=== PATIENT | female | born 2000 | race Caucasian/White ===

== ENCOUNTER 2023-10-15 09:36 | Emergency (ER) | payer OTHER ==
[2023-10-15 09:53] VITALS: BP 116/50; O2SAT 99
--- NOTE | 2023-10-15 09:54 | ED Physician Documentation ---
History of Present Illness - Stated complaint Stated Complaint: FALL,CRAMPING - Chief complaint Chief Complaint: General - History obtained from History obtained from: Patient - Additonal information Additional information: 23-year-old G2, P1 at 16 weeks fell on her back a couple of days ago while working and has pelvic cramping without bleeding or fluid loss. No other injuries. PD PAST MEDICAL HISTORY - Past Medical History Cardiovascular: None Respiratory: None Neuro: None Endocrine/Autoimmune: None GI: None TABULATING SUPERVISOR: None : None HEENT: None Psych: None Musculoskeletal: None Derm: None - Past Surgical History Past Surgical History: Yes HEENT: Tonsil/Adenoidectomy - Present Medications Home Medications: Ambulatory Orders Medication Instructions Recorded Confirmed Nitrofurantoin [Macrobid] 100 mg PO BID #10 cap 09/02/23 - Allergies Allergies/Adverse Reactions: Allergies Allergy/AdvReac Type Severity Reaction Status Date / Time No Known Drug Allergies Allergy Verified 10/15/23 09:41 - Social History Does the pt smoke?: No Smoking Status: Never smoker Does the pt drink ETOH?: No Does the pt have substance abuse?: No - Immunizations Immunizations are current?: Yes - POLST Patient has POLST: No PD ED PE NORMAL - Vitals Vital signs reviewed: Yes - General General: Alert and oriented X 3, No acute distress - Abdomen Abdomen: Normal bowel sounds, Soft, Non tender, Other (Bedside ultrasound demonstrates single live intrauterine with a heart rate of 154 and positive motion.) - Neuro Neuro: Alert and oriented X 3, Normal speech Eye Opening: Spontaneous Motor: Obeys Commands Verbal: Oriented GCS Score: 15 Results - Vitals Vitals: Vital Signs - 24 hr 10/15/23 09:42 Temperature 36.7 C Heart Rate 75 Respiratory 16 Rate Blood Pressure 116/50 L O2 Saturation 99 Oxygen O2 Source Room air PD Medical Decision Making - ED course ED course: She presents with pelvic cramping in second trimester after a fall with reassuring bedside ultrasound. Departure - Departure Disposition: 01 Home, Self Care Clinical Impression: Qualifiers: Weeks of gestation: 16 weeks Qualified Code(s): Z3A.16 - 16 weeks gestation of Back contusion Qualifiers: Encounter type: initial encounter Laterality: unspecified laterality Qualified Code(s): S20.229A - Contusion of unspecified back wall of thorax, initial encounter Condition: Good Record reviewed to determine appropriate education?: Yes Instructions: ED Preg Established Normal Sxs Follow-Up: [facility] [Provider Group] Comments: Call your doctor to arrange a follow-up appointment, make the next available appointment. In the interim, return anytime if worse or if new symptoms develop.
== END 2023-10-15 10:15 | disposition home or self-care (01) ==
LOC: ED 09:36
DX: O9A.212 Injury, poisoning and certain other consequences of external causes complicating pregnancy, second trimester (principal); S20.229A Contusion of unspecified back wall of thorax, initial encounter; Z3A.16 16 weeks gestation of pregnancy; W19.XXXA Unspecified fall, initial encounter; Y99.0 Civilian activity done for income or pay
CPT/HCPCS: 99281; 99282

== ENCOUNTER 2023-10-22 08:00 | Outpatient (CLI) | payer OTHER ==
[2023-10-22 17:10] LABS: BILIRUBIN,URINE NEGATIVE (NEGATIVE); GLUCOSE, URINE (UA) NEGATIVE (NEGATIVE); KETONES,URINE (UA) TRACE mg/dL (NEGATIVE); LEUKOCYTE ESTERASE, URINE MODERATE (NEGATIVE); NITRITE,URINE POSITIVE (NEGATIVE); OCCULT BLOOD,URINE NEGATIVE (NEGATIVE); PROTEIN,URINE NEGATIVE (NEGATIVE); UROBILINOGEN,URINE 1 (NORMAL) E.U./dL (NORMAL)
[2023-10-22 17:11] LABS: CLARITY,URINE CLOUDY (CLEAR)
[2023-10-22 17:20] LABS: AMORPHOUS SEDIMENT,UR Marked /LPF; BACTERIA,URINE Many /HPF (None Seen); RBC,URINE 0-5 /HPF (0-5); SQUAMOUS EPITHELIAL CELL,UR FEW Squamous (<= Few)
[2023-10-22 20:35] LABS: CHLAMYDIA TRACHOMATIS DNA NEGATIVE (NEGATIVE); NEISSERIA GONORRHOEAE DNA NEGATIVE (NEGATIVE); TRICHOMONAS VAGINALIS DNA NEGATIVE (NEGATIVE)
== END 2023-10-22 23:59 | disposition home or self-care (01) ==
LOC: LAB.WC 08:00
PROVIDERS: ATTEND Nurse Practitioner
DX: Z34.82 Encounter for supervision of other normal pregnancy, second trimester (principal)
CPT/HCPCS: 81001; 87086; 87181; 87491; 87591; 87661

== ENCOUNTER 2023-11-15 18:09 | Outpatient (CLI) | payer OTHER ==
--- NOTE | 2023-11-15 21:18 | Ultrasound Report ---
PROCEDURE: OB Anatomy Scan INDICATIONS: SUPERVISION OF OUTSIDE/PRIOR DATING DATA: Last menstrual period (LMP): 05/26/2023. LMP-based estimated date of delivery (MAC): 03/01/2024. First dating scan (date and location): Today. Estimated date of delivery (MAC) from first dating scan: 04/01/2024. TECHNIQUE: Real-time scanning was performed of the fetus, with image documentation and biometric measurements. COMPARISON: None. FINDINGS: General: A single living intrauterine gestation is present. Presentation: Transverse Placenta: Placental position is posterior, without previa. Amniotic fluid index: 12.7 cm, within normal limits for gestational age. heart rate: 150 beats per minute. Maternal cervical canal: 4.4 cm long; normal length is 2.5 cm or more. biometrics: Biparietal diameter: 4.65 cm, 20 weeks, less than the 1st percentile Head circumference: 17.88 cm, 20 weeks and 2 days, less than the 1st percentile Abdominal circumference: 15.38 cm, 20 weeks and 4 days, less than the 1st percentile Femur length: 3.15 cm, 19 weeks and 6 days, less than the 1st percentile Estimated gestational age from initial scan: 24 weeks and 5 days Composite gestational age from present scan: 20 weeks and 2 days Estimated weight and percentile: 339 g, less than the 1st percentile Measurement variability in biometric dating: +/- 10 days from 12-20 weeks gestation, +/- 2 weeks from 20-30 weeks gestation, +/- 3 weeks at 30 weeks gestation or later. Anatomic survey: Neuro: Ventricles are normal at less than 10 mm. Cisterna magna is normal at 3-11 mm. Cerebellum is normal in size and morphology. Nuchal skin fold: Normal at less than 6 mm between 14 and 20 weeks gestational age. Face: Nose and lips, facial profile are normal. Spine: No evidence for spina bifida. Heart: 4-chambered heart is present, with normal ventricular outflow tracts. Diaphragm: Diaphragm is intact. Stomach: Left-sided stomach is present. Kidneys: No hydronephrosis. Normal is less than 5 mm in 2nd trimester, less than 7 mm in 3rd trimester. Cord: 3 vessel cord has orthotopic insertion. Bladder: Normal in size. Extremities: All 4 extremities are visualized. SD ratios range from 4.2-6.6. Nuchal cord. IMPRESSION: Living intrauterine gestation. EFW is less than the 1st percentile based on LMP, which could be due t o IUGR versus inconsistent dating. Elevated SD ratio up to 6.6. However, there is normal DANIELLE. No significant abnormalities on routine anatomic survey. Nuchal cord noted. Preliminary discussed with Bald[place]ar by US technologist. Reviewed by: Jim Marti MD on 11/15/2023 9:17 PM PDT Approved by: Jim Marti MD on 11/15/2023 9:17 PM PDT Station ID: [id number]
== END 2023-11-15 18:10 | disposition home or self-care (01) ==
LOC: DI 18:09
PROVIDERS: ATTEND Nurse Practitioner
DX: Z34.82 Encounter for supervision of other normal pregnancy, second trimester (principal)

== ENCOUNTER 2023-11-21 12:55 | Outpatient (CLI) | payer OTHER ==
[2023-11-21 13:27] LABS: BASOPHILS # (AUTO) 0.1 10^3/uL (0.0-0.1); BASOPHILS % (AUTO) 0.4 %; EOSINOPHILS # (AUTO) 0.3 10^3/uL (0.0-0.7); EOSINOPHILS % (AUTO) 2.6 %; HCT - HEMATOCRIT 26.7 % (37.0-47.0); HGB - HEMOGLOBIN 8.1 g/dL (12.0-16.0); LYMPHOCYTES # (AUTO) 1.7 10^3/uL (1.5-3.5); LYMPHOCYTES % (AUTO) 14.3 %; MEAN CORPUSCULAR HEMOGLOBIN 20.1 pg (27.0-31.0); MEAN CORPUSCULAR HGB CONC 30.3 g/dL (32.0-36.0); MEAN CORPUSCULAR VOLUME 66.4 fL (81.0-99.0); MEAN PLATELET VOLUME 10.1 fL (7.9-10.8); MONOCYTES # (AUTO) 1.1 10^3/uL (0.0-1.0); MONOCYTES % (AUTO) 8.7 %; NEUTROPHILS # (AUTO) 8.8 10^3/uL (1.5-6.6); NEUTROPHILS % (AUTO) 72.5 %; PLT - PLATELET COUNT 302 10^3/uL (130-450); RED BLOOD COUNT 4.02 10^6/uL (4.20-5.40); RED CELL DISTRIBUTION WIDTH 16.8 % (12.0-15.0); WHITE BLOOD COUNT 12.1 x10^3/uL (4.8-10.8)
[2023-11-21 13:43] LABS: SLIDE REVIEW? Indicated
[2023-11-21 13:47] LABS: PLATELET MORPHOLOGY NORMAL APPEARANCE (NORMAL)
[2023-11-21 13:48] LABS: PLATELET ESTIMATE, MANUAL NORMAL (130-450,000) (NORMAL); WBC MORPHOLOGY (MULTIPLE) NORMAL APPEARANCE (NORMAL)
[2023-11-22 04:07] LABS: HBsAG SCREEN Negative (Negative); HIV SCREEN 4TH GENERATION Non Reactive (Non Reactive)
[2023-11-22 10:08] LABS: HCV AB Non Reactive (Non Reactive)
[2023-11-22 13:11] LABS: VARICELLA-ZOSTER AB IGG 168 index (Immune >165)
[2023-11-23 01:08] LABS: RPR Non Reactive (Non Reactive)
== END 2023-11-21 12:56 | disposition home or self-care (01) ==
LOC: LAB 12:55
PROVIDERS: ATTEND Nurse Practitioner
DX: O36.5920 Maternal care for other known or suspected poor fetal growth, second trimester, not applicable or unspecified (principal)
CPT/HCPCS: 36415; 85025; 86592; 86762; 86787; 86803; 86850; 86900; 86901; 87340; 87389

== ENCOUNTER 2023-11-26 06:42 | Outpatient (CLI) | payer OTHER ==
--- NOTE | 2023-11-26 10:41 | Ultrasound Report ---
PROCEDURE: OB Follow up INDICATIONS: POOR GROWTH OUTSIDE/PRIOR DATING DATA: Last menstrual period (LMP): 05/26/2023. LMP-based estimated date of delivery (MAC): 03/01/2024. First dating scan (date and location): 11/15/2023. Estimated date of delivery (MAC) from first dating scan: 04/01/2024. The below data below was generated using the study generated MAC of 04/01/2024 TECHNIQUE: Real-time scanning was performed of the fetus, with image documentation and biometric measurements. Endovaginal scanning: Not performed. COMPARISON: 11/15/2023. FINDINGS: General: A single living intrauterine gestation is present. Presentation: Transverse with head towards maternal right side. Placenta: Placental position is posterior, without previa. Amniotic fluid index: 10.9 cm, which is 11% and is within normal limits for gestational age. heart rate: 143 beats per minute. Maternal cervical canal: Closed and measures 4.1 cm long; normal length is 2.5 cm or more. biometrics: Biparietal diameter: 4.87 cm, 20 weeks, 5 days, 10.4%. Head circumference: 18.96 cm, 21 weeks, 2 days, 16.0%. Abdominal circumference: 15.29 cm, 20 weeks, 3 days, 8.5 %. Femur length: 3.42 cm, 20 weeks, 5 days, 10.2% Estimated gestational age from initial scan: 21 weeks, 6 days Composite gestational age from present scan: 20 weeks, 6 days Estimated weight and percentile: 369.7 g, 5.2% Measurement variability in biometric dating: +/- 10 days from 12-20 weeks gestation, +/- 2 weeks from 20-30 weeks gestation, +/- 3 weeks at 30 weeks gestation or more. Other: Cord Doppler measures 6.7, 3.5, and 2.9 at the abdominal, mid and placental portions respectiv rachel. IMPRESSION: 1. Single live intrauterine gestation with fetus in transverse presentation. heart rate is 143 bpm. Normal DANIELLE at 10.9 cm which is at 11%. 2. Low estimated weight at 5.2% concerning for IUGR. 3. Elevated umbilical cord S/D ratio at its abdominal insertion at 6.7. Reviewed by: Hever Cormier MD on 11/26/2023 10:39 AM PDT Approved by: Hever Cormier MD on 11/26/2023 10:39 AM PDT Station ID: [id number]
== END 2023-11-26 06:43 | disposition home or self-care (01) ==
LOC: DI 06:42
PROVIDERS: ATTEND Nurse Practitioner
DX: O36.5920 Maternal care for other known or suspected poor fetal growth, second trimester, not applicable or unspecified (principal); O28.3 Abnormal ultrasonic finding on antenatal screening of mother; Z3A.20 20 weeks gestation of pregnancy

== ENCOUNTER 2024-03-11 15:58 | Inpatient (IN) ==
--- NOTE | 2024-03-11 16:31 | HISTORY & PHYSICAL EXAMINATION ---
Admit History Visit Reason Visit Reason: Other (Scheduled induction of labor) : 7 Parity: 1 Premature: 0 Ectopic: 0 : 5 Care: positive [facility] Risk/History: positive Other (3rd degree laceration with last delivery) Complications This : positive induced HTN (Gestational HTN) and Other (Cholestasis of , anemia - received iron infusions this , late to care (21 wks)) Smoking Status: Never smoker Mother's Labs Mother's Blood Type: positive B Mother's RH: positive Positive GBS: positive Group B Step Negative Rubella Status: positive Immune Other Maternal History Other Maternal History: Patient is a 24 yo at 37+0 wks here for scheduled medical IOL for gestational HTN and cholestasis. She is feeling well today. She reports good movements. She's had some irreg contractions. She denies vaginal bleeding or leakage of fluid. She also denies headache, visual changes, or RUQ/epigastric pain. Allergies No Known Drug Allergies Allergy (Verified 02/29/24 14:14) Expected Delivery Route/Plan vaignal delivery at term Specific Issues/Plans LMP: 05/26/2023 MAC by LMP: 03/01/2024 U/S: Final MAC: 04/01/2024 by MFM Pre- weight: 140 PROBLEMS: Gestational hypertension: IOL at 37 weeks. Cholestasis: bile acids 10.3 and then 5 so not really. just very itchy. -Twice weekly NSTs -Ursodiol 300mg TID helping. -Elevated SD ratio 6.6 with EFW <1%tile. MFM referral initiated and discussed likely dating error given late to seek care. Dates adjusted however cord dopplers remain elevated. -Growth and DANIELLE @ 33.6wks elevated (3.0-3.3), DANIELLE 15.7cm. seen by MFM in November and they just felt dates were off. -Medical IOL scheduled @ 37.0wks (03/11/2024), maybe we can push to 38 weeks as not really cholestatasis. She does not like that idea as has things arranged for the 37 week date -Late to care (21 weeks), hx of third degree tear, pp anemia and SAB x5 -Significant anemia in : Iron infusions ordered at 26 weeks. 02/23 revealed patient suspects she has beta thal but has never been tested. -LDASA initiated at 21 weeks by patient preference. at 34 weeks she shared she was only taking prn for pain. encouraged to take daily and explained why. Blood type: B+ Antibody screen: negative CBC: PLT 302 HCT 8.1 HGB 26.7% rubella: immune VZV: immune HBsAg: Neg HepC: NR RPR/AB-EIA: NR HIV: NR Flu: declined COVID: declined PAP: due pp. hx of abnormals. GC/CT: collected 10/22/23 negative HSV: Denies self/partner Genetic Testing: drawn FAS: Placenta: posterior without previa Cord: 3 vessel DANIELLE: 12.7 EFW: < 1st precentile SD ratio 6.6, normal DANIELLE * Likely dating error given late to care. Patient states sure LMP. Referral to [facility] and discussed with patient. 12/10/2023 follow up ultrasound: Elevated umbilical artery systolic to diastolic ratio 5.2-5.5, abnormal 50gm GCT: 124 TDAP: 01/18/2024 Breast Pump: Has one 2nd antibody screen: RSV: 02/24/24 given mls 3rd trimester 9. 3rd trimester RPR: NR GBS: Negative 02/27/2024 Delivery plan: Desires unmedicated, low intervention delivery. contraception Meds/Allgy Home Medications Ambulatory Orders Medication Instructions Recorded Confirmed aspirin 81 mg tablet,delayed 81 mg PO QDAY 12/21/23 03/07/24 release (Adult Low Dose Aspirin) vits no.126-ferrous fum tab PO 12/21/23 03/07/24 28 mg iron-folic acid 800 mcg tablet (Classic ) hydroxyzine pamoate 25 mg capsule 25 mg PO TID PRN itching #90 caps 02/18/24 03/07/24 ursodiol 300 mg capsule 300 mg PO TID #180 caps 02/18/24 03/07/24 Allergies Allergies Allergy/AdvReac Type Severity Reaction Status Date / Time No Known Drug Allergies Allergy Verified 02/29/24 14:14 [facility] Medical History Medical History Anemia Depression Anxiety Surgical History Surgical History History of tonsillectomy Social History Social History Smoking Status: Never smoker Do you dip or chew tobacco?: No Do you vape?: No Do you feel safe in your home environment?: Yes Suffered physical, verbal, emotional, or financial abuse?: No History of Abuse: No ETOH Use: None Substance Use: denies use POLST Patient has POLST: No Review of Systems Status of ROS: 10 or more systems reviewed and unremarkable except as noted in history and below Physical Abdominal Exam Vital Signs: See chart; BP 142/75 Contraction Frequency (min/apart): Irreg and not felt by patient; approx Q 4-5 min Contraction Intensity: positive Mild Monitoring Heart Rate Baseline: 140s, mod variability, + accels, no decels Strip Review: positive Category I Presentation Presentation: positive Vertex (By bedside US; ROT to MECHE with spine at maternal right) Vaginal Exam Membranes: positive Membranes intact Dilation (in cm): 1 Effacement (%): 25 Station: positive -3 Cervical Position: positive Posterior Speculum Exam Speculum Exam Performed: positive No Plan for Labor Plan For Labor I expect patient to be DC'd or transferred within 96 hours.: Yes Conclusion/Plan Problem List (1) Gestational hypertension: Plan: 24 yo at 37 wks with gestational HTN and cholestasis, here for induction of labor for medical reasons. FHT cat 1. Cervix minimally dilated with only occ, mild ctx noted. Baby is cephalic by exam, confirmed with bedside US. BP's mild range. -Admit for cervical ripening then labor induction -Discussed induction mgmt, medications, mechanical ripening, labor/delivery interventions expectations, and risks of interventions. plan desires reviewed, and pt is hoping for no epidural. All questions answered, and consent reviewed and signed. -Plan to start with misoprostol 25 mcg per vagina followed by 50 mcg PO Q 4 hrs x max 5 more doses. Vaginal miso placed at 1730. -Obtained preE labs on admission. -Monitor for evidence of preE severe features. Consider start of mag sulfate as indicated. PRN BP medications ordered for severe-range BPs. Avoid methergine after . -GBS neg - no indication for antibiotics. -VTE prophy: ambulation unless epidural placed -PP contraception: undecided currently -Anticipate Qualifiers: Trimester: third trimester Qualified Code(s): O13.3 - Gestational [-induced] hypertension without significant proteinuria, third trimester (2) Cholestasis during in third trimester: Plan: Cont Ursodiol 300 mg tid until delivery (3) Anemia affecting in third trimester: Plan: Obtain CBC on admission. Consider repeat iron infusions as indicated. (4) 37 weeks gestation of : Lab Results Lab results reviewed: Yes Other Lab Results: CBC notes mild anemia; CMP normal; urine MTP not yet obtained (waiting for void)
[2024-03-11] MEDS ORDERED: NIFEdipine 10 MG CAPSULE PO PRN (17:03)
[2024-03-11] MEDS ORDERED: miSOPROStoL 200 MCG TABLET PR PRN (17:03)
[2024-03-11] MEDS ORDERED: OXYTOCIN/SODIUM CHLORIDE 500 ML IV PRN (17:03)
[2024-03-11] MEDS ORDERED: hydrALAZINE INJ 20 MG/ML VIAL IVP PRN ×2 (17:03)
[2024-03-11] MEDS ORDERED: SODIUM CHLORIDE FLUSH 0.9% 10 ML SYRINGE IVP PRN (17:03)
[2024-03-11] MEDS ORDERED: lidocaine 1% 20 ML MDV ID PRN (17:03)
[2024-03-11] MEDS ORDERED: OXYTOCIN 10 UNIT/ML VIAL IM PRN (17:03)
[2024-03-11] MEDS ORDERED: TERBUTALINE 1 MG/ML VIAL SUBQ PRN (17:03)
[2024-03-11] MEDS ORDERED: fentaNYL 100 MCG/2 ML VIAL IVP PRN (17:03)
[2024-03-11] MEDS ORDERED: LABETALOL 20 MG/4 ML SYRINGE IVP PRN ×3 (17:03)
[2024-03-11] MEDS ORDERED: ONDANSETRON ODT 4 MG TABLET PO PRN (17:08)
[2024-03-11] MEDS ORDERED: CALCIUM CARBONATE CHEW 500 MG TABLET PO PRN (17:08)
[2024-03-11] MEDS ORDERED: NALBUPHINE 10 MG/ML AMP IVP PRN (17:08)
[2024-03-11] MEDS ORDERED: MORPHINE 10 MG/ML VIAL IM ONE (17:11)
[2024-03-11] MEDS ORDERED: PROCHLORPERAZINE 10 MG/2 ML VIAL IM PRN (17:12)
[2024-03-11 17:19] LABS: BASOPHILS # (AUTO) 0.1 10^3/uL (0.0-0.1); BASOPHILS % (AUTO) 0.6 %; EOSINOPHILS # (AUTO) 0.3 10^3/uL (0.0-0.7); EOSINOPHILS % (AUTO) 2.8 %; HCT - HEMATOCRIT 32.9 % (37.0-47.0); HGB - HEMOGLOBIN 10.1 g/dL (12.0-16.0); LYMPHOCYTES # (AUTO) 2.4 10^3/uL (1.5-3.5); LYMPHOCYTES % (AUTO) 22.1 %; MEAN CORPUSCULAR HEMOGLOBIN 19.8 pg (27.0-31.0); MEAN CORPUSCULAR HGB CONC 30.7 g/dL (32.0-36.0); MEAN CORPUSCULAR VOLUME 64.4 fL (81.0-99.0); MEAN PLATELET VOLUME 10.5 fL (7.9-10.8); MONOCYTES # (AUTO) 0.9 10^3/uL (0.0-1.0); MONOCYTES % (AUTO) 8.7 %; NEUTROPHILS # (AUTO) 7.1 10^3/uL (1.5-6.6); NEUTROPHILS % (AUTO) 65.3 %; PLT - PLATELET COUNT 305 10^3/uL (130-450); RED BLOOD COUNT 5.11 10^6/uL (4.20-5.40); RED CELL DISTRIBUTION WIDTH 14.8 % (12.0-15.0); WHITE BLOOD COUNT 10.9 x10^3/uL (4.8-10.8)
[2024-03-11 17:22] LABS: SLIDE REVIEW? Indicated
[2024-03-11] MEDS ORDERED: miSOPROStoL 100 MCG TABLET ONE (17:27)
[2024-03-11 17:29] LABS: ALBUMIN 3.5 g/dL (3.2-5.5); ALBUMIN/GLOBULIN RATIO 0.9 (1.0-2.2); BILIRUBIN,TOTAL 0.3 mg/dL (0.2-1.0); CALCIUM 9.7 mg/dL (8.5-10.3); CREATININE 0.6 mg/dL (0.6-1.3); POTASSIUM 4.1 mmol/L (3.5-4.5); TOTAL PROTEIN 7.2 g/dL (6.4-8.9)
[2024-03-11] MEDS: miSOPROStoL 100 MCG TABLET VG SCH (17:32)
[2024-03-11 17:55] LABS: PLATELET ESTIMATE, MANUAL NORMAL (130-450,000) (NORMAL); PLATELET MORPHOLOGY NORMAL APPEARANCE (NORMAL)
[2024-03-11 18:52] LABS: CREATININE,URINE 89.3 mg/dL; PROTEIN/CREATININE RATIO,URINE 0.2 (<=0.2)
--- NOTE | 2024-03-11 23:29 | PROVIDER PROGRESS NOTE ---
Labor Progress Note Uterine Monitoring Uterine Monitoring Mode: positive External toco Contraction Frequency (min/apart): Q 1-3 min Contraction Intensity: positive Moderate Monitoring Monitor Mode: positive External ultrasound Heart Rate Baseline: 150 Heart Rate Variability: positive Moderate (6-25 bmp) Accelerations: positive Present, 15x15 Decelerations: positive Late (Intermittent), Variable (Intermittent) and Intermittent (<50% x20 min) Strip Review: positive Category II Vaginal Exam Dilation (in cm): 1.5 Effacement (%): 50 Station: -3 Cervical Position: Posterior Labor Progress Note Labor Progress Note/Additional Text: S/ Patient reports increased discomfort with ctx. Variable decel noted on FHT. O/ As above A/ IOL for gestational HTN and cholestasis. Pt s/p one dose of vaginal misoprostol at 1730, now geremias with moderate discomfort, without additional medication. FHT cat 2 but overall reassuring at present. Cervical exam now unchanged from admission. P/ -Recommend expectant mgmt with current ctx pattern. If spacing and less intense with cat 1 FHT, could consider repeat dosing of misoprostol. -FHT with intermittent late and variable decels. Will give fluid bolus now and cont to monitor. -Morphine sleep (IM Morphine/Compazine) or Nubain prn if patient requests.
[2024-03-12] MEDS: miSOPROStoL 100 MCG TABLET PO SCH (03:12)
[2024-03-12] MEDS: URSODIOL 300 MG PO SCH (05:40)
[2024-03-12] MEDS: SODIUM CHLORIDE FLUSH 0.9% 10 ML SYRINGE IVP SCH (05:40)
[2024-03-12] MEDS ORDERED: FAMOTIDINE 20 MG/2 ML VIAL IVP SCH (09:00)
--- NOTE | 2024-03-12 10:11 | PROVIDER PROGRESS NOTE ---
Labor Progress Note Uterine Monitoring Uterine Monitoring Mode: positive External toco Contraction Frequency (min/apart): Irreg, Q 3-6 min Contraction Intensity: positive Mild to moderate Uterine Resting Tone: positive Soft Monitoring Monitor Mode: positive External ultrasound Heart Rate Baseline: 140 Heart Rate Variability: positive Moderate (6-25 bmp) Accelerations: positive Present, 15x15 Decelerations: positive None Strip Review: positive Category I Vaginal Exam Dilation (in cm): 2.5 Effacement (%): 50 Station: -3 Cervical Position: Midposition Labor Progress Note Labor Progress Note/Additional Text: S/ Overnight, initial contractions dissipated and she received oral misoprostol 50 mcg at 0312 and again at approx 0730. She reports mild to moderate discomfort with contractions currently. O/ As above; cat 2 FHT last night then resolution of intermittent late/variable decels; currently cat 1 Procedure: Cervical ripening balloon placed without complications. Uterine balloon filled with 80 ml, vaginal balloon with 40 ml. Moderate vaginal bleeding and clot noted within 5 min of placement, upon patient standing. A/ IOL for gestational HTN and cholestasis. Pt s/p one dose of vaginal misoprostol at 1730, then 2 doses of oral miso at 0312 and 0730. Ctx remain irreg and mild to moderate. FHT cat 1 and reassuring. BP's normal to mildly elevated overnight. P/ -Discussed and inserted cervical ripening balloon. Monitored increased bloody show, then vaginal exam performed at 1130 to see if balloon had passed. Both balloons were in the vagina, and repeat cervical exam now 4.5/50/-3. -Start low-dose Pitocin, and discussed paln for amniotomy once station lower. -Morphine sleep (IM Morphine/Compazine) or Nubain prn if patient requests.
[2024-03-12] MEDS: LACTATED RINGERS 1,000 ML IV PRN (12:05)
[2024-03-12] MEDS: OXYTOCIN/SODIUM CHLORIDE 500 ML IV SCH (12:06)
--- NOTE | 2024-03-12 14:11 | PHARMACY PROGRESS NOTE ---
Best Possible Medication History Admit Date and Time: 03/11/24 1703 Home Medications Medication Instructions Recorded Confirmed Type vits no.126-ferrous fum 1 tab PO DAILY 12/21/23 03/12/24 History 28 mg iron-folic acid 800 mcg tablet (Classic ) ursodiol 300 mg capsule 300 mg PO TID #180 caps 02/18/24 03/12/24 Rx Processed by: Pharmacy Medications reviewed in ED?: No Medication History completed: Yes Patient Interview: Completed Secondary Source(s): Caregiver and Insurance records [facility] Statement: [employer] Rx insurance records and RN interview. As the person ultimately responsible for medication therapy, providers are able to order a medication from an existing home medication list in [facility] via the "Reconcile Routine" prior to Confirmation of that medication by product support rep. Such practice is discouraged except when the physician, in their clinical judgment, deems that a medical need exists for a medication without regard to previous use.
--- NOTE | 2024-03-12 17:30 | PROVIDER PROGRESS NOTE ---
Labor Progress Note Uterine Monitoring Uterine Monitoring Mode: positive External toco Contraction Frequency (min/apart): Q 2-3 with Pitocin at 8 mU/min Contraction Intensity: positive Moderate to strong Uterine Resting Tone: positive Soft Monitoring Monitor Mode: positive External ultrasound Heart Rate Baseline: 140s Heart Rate Variability: positive Moderate (6-25 bmp) Accelerations: positive Present, 15x15 Decelerations: positive None Strip Review: positive Category I Vaginal Exam Dilation (in cm): 5.5 Effacement (%): 60 Station: -2 Cervical Position: Midposition Labor Progress Note Labor Progress Note/Additional Text: S/ She reports moderate to severe discomfort with contractions and increased shivering (though not cold). O/ As above; cat 1 FHT currently; occ cat 2 FHT with rare late decels Procedure: Amniotomy performed at 1548 - clear fluid noted. A/ IOL for gestational HTN and cholestasis. Pt s/p one dose of vaginal misoprostol at 1730, then 2 doses of oral miso at 0312 and 0730. Ripening balloon placed then fell out shortly after insertion this morning. Pitocin started thereafter. FHT cat 1 and reassuring. BP's normal to mildly elevated. P/ -Amniotomy performed with clear fluid noted. -Cont Pitocin per protocol. -Patient may have Fentanyl or Nubain prn pain or may have ADAL placed if desired. -Cont to anticipate .
--- NOTE | 2024-03-12 19:52 | PROVIDER PROGRESS NOTE ---
Labor Progress Note Uterine Monitoring Uterine Monitoring Mode: positive External toco Contraction Frequency (min/apart): Q 2-5; occasionally spaced and irreg Contraction Intensity: positive Strong Uterine Resting Tone: positive Soft Monitoring Monitor Mode: positive External ultrasound Heart Rate Baseline: 140s Heart Rate Variability: positive Moderate (6-25 bmp) Accelerations: positive Absent Decelerations: positive None and Intermittent (<50% x20 min) (Rare late decels) Strip Review: positive Category II Vaginal Exam Dilation (in cm): 5.5 Effacement (%): 60 Station: -2 Cervical Position: Midposition Labor Progress Note Labor Progress Note/Additional Text: S/ She reports severe discomfort with contractions and continued shivering (though not cold). She has tried warm tub and position changes but hasn't been able to move around much due to pain. O/ As above; cat 1-2 FHT - overally reassuring A/ IOL for gestational HTN and cholestasis. Pt s/p one dose of vaginal misoprostol at 1730, then 2 doses of oral miso at 0312 and 0730. Ripening balloon placed then fell out shortly after insertion this morning. Pitocin started thereafter. FHT cat 1-2 and overall reassuring. BP's normal to mildly elevated. No cervical change since last exam. Baby feels ROT on exam. P/ -Reviewed benefits and risks of epidural, and she is desiring ADAL at this time. Anesthesia consulted. Initiate IV fluid bolus. -Cont Pitocin per protocol. -Recommend positioning to far left with peanut ball to promote internal rotation. -Cont to anticipate .
[2024-03-12] MEDS ORDERED: LIDOCAINE 2%-EPI 1:100000 20 ML MDV ONE (20:05)
[2024-03-12] MEDS ORDERED: ROPIVACAINE 0.2% 200 MG/100 ML BAG EP ONE (20:05)
[2024-03-12] MEDS ORDERED: ROPIVACAINE 0.2% 200 MG/100 ML BAG EP PRN (20:39)
[2024-03-12] MEDS ORDERED: ePHEDrine 50 MG/ML VIAL IVP PRN (20:39)
[2024-03-12] MEDS ORDERED: NALOXONE 0.4 MG/ML VIAL IVP PRN ×2 (20:39→23:13)
[2024-03-12] MEDS ORDERED: ONDANSETRON 4 MG/2 ML VIAL IVP PRN (20:39)
--- NOTE | 2024-03-12 20:39 | ANESTHESIA PROCEDURE NOTE ---
Pre-Anesthesia VS, & Labs Diagnosis Surgical Diagnosis:: Active labor Procedure Procedure: Vaginal delivery Vitals Vital Signs: Pulse Resp BP 91 16 142/75 H 03/11/24 16:40 03/11/24 16:40 03/11/24 16:40 Height (in): 5 ft 4 in Weight (kg): 85 kg Body Mass Index: 32.1 BMI Classification: Obese NPO NPO: Other (clear liquids during labor) Is Patient ?: Yes Lab Results Current Lab Results: Laboratory Tests 03/11/24 16:21: RBC Morph Micro Appear RARE SICKLE CELLS, Sodium 133 L, Potassium 4.1, Chloride 101, Carbon Dioxide 20 L, Anion Gap 12.0, BUN 15, Creatinine 0.6, Estimated GFR (MDRD) 122, Glucose 113 H, Calcium 9.7, Total Bilirubin 0.3, AST 13, ALT 9 L, Alkaline Phosphatase 170 H, Total Protein 7.2, Albumin 3.5, Globulin 3.7, Albumin/Globulin Ratio 0.9 L, Blood Type B POSITIVE, Antibody Screen NEGATIVE 03/11/24 16:21: RBC Morph Micro Appear 1+ OVALOCYTES 03/11/24 16:21: RBC Morph Micro Appear 1+ POLYCHROMASIA 03/11/24 16:21: RBC Morph Micro Appear 1+ HYPOCHROMASIA 03/11/24 16:21: RBC Morph Micro Appear 3+ MICROCYTOSIS 03/11/24 16:21: WBC 10.9 H, RBC 5.11, Hgb 10.1 L, Hct 32.9 L, MCV 64.4 L, MCH 19.8 L, MCHC 30.7 L, RDW 14.8, Plt Count 305, MPV 10.5, Neut # (Auto) 7.1 H, Lymph # (Auto) 2.4, [place] # (Auto) 0.9, Eos # (Auto) 0.3, Baso # (Auto) 0.1, Absolute Nucleated RBC 0.00, Nucleated RBC % 0.0, Manual Slide Review Indicated, Platelet Estimate NORMAL (130-450,000), Platelet Morphology NORMAL APPEARANCE, RBC Morph Micro Appear 2+ ANISOCYTOSIS Lab results reviewed: Yes 03/11/24 16:21 03/11/24 16:21 Meds/Allgy Home Medications Ambulatory Orders Medication Instructions Recorded Confirmed vits no.126-ferrous fum 1 tab PO DAILY 12/21/23 03/12/24 28 mg iron-folic acid 800 mcg tablet (Classic ) ursodiol 300 mg capsule 300 mg PO TID #180 caps 02/18/24 03/12/24 Allergies Allergies Allergy/AdvReac Type Severity Reaction Status Date / Time No Known Drug Allergies Allergy Verified 03/12/24 14:52 PFSH Medical History Medical History (Updated 03/12/24 @ 20:37 by Alysia Alvares CRNA) Cholestasis during in third trimester Dx 32wks Twice weekly NSTs ordered Physician consult initiated - Urgent Gestational hypertension Anemia Depression Anxiety Surgical History Surgical History History of tonsillectomy Social History Social History Smoking Status: Never smoker Do you dip or chew tobacco?: No Do you vape?: No Do you feel safe in your home environment?: Yes Suffered physical, verbal, emotional, or financial abuse?: No History of Abuse: No ETOH Use: None Substance Use: denies use POLST Patient has POLST: No Anesthesia Exam (Expanded) Exam General: Alert, Oriented x3 and Cooperative Dental: WNL (tongue piercing) Mouth Openin Fingerbreadth Neck Mobility: Normal Mallampati classification: II Thyromental Distance: 4-6 cm Plan Plan Anesthesia Type: Epidural Consent for Procedure(s) Verified and Reviewed: Yes Code Status: Attempt Resuscitation ASA Classification ASA classification: 2-Mild systemic disease Is this case an emergency?: No
[2024-03-12] MEDS ORDERED: SODIUM CHLORIDE 0.9% 0 ML ONE (22:10)
[2024-03-12] MEDS: miSOPROStoL 200 MCG TABLET BC PRN (22:45)
[2024-03-12] MEDS ORDERED: CARBOPROST TROMETHAMINE 250 MCG/ML VIAL IM ONE (22:45)
[2024-03-12] MEDS: CARBOPROST TROMETHAMINE 250 MCG/ML VIAL IM ONE (22:48)
[2024-03-12] MEDS: TRANEXAMIC ACID IN NACL 1,000 MG/100 ML BAG IV PRN (22:48)
[2024-03-12] MEDS ORDERED: NIFEdipine 10 MG CAPSULE PO PRN (23:13)
[2024-03-12] MEDS ORDERED: OXYTOCIN/SODIUM CHLORIDE 500 ML IV PRN (23:13)
[2024-03-12] MEDS ORDERED: LABETALOL 20 MG/4 ML SYRINGE IVP PRN ×2 (23:13)
[2024-03-12] MEDS ORDERED: hydrALAZINE INJ 20 MG/ML VIAL IVP PRN ×2 (23:13)
[2024-03-12] MEDS ORDERED: LABETALOL 5 MG/1 ML 20 ML MDV IVP PRN (23:13)
--- NOTE | 2024-03-12 23:29 | DELIVERY NOTE ---
Delivery Note Labor Labor: positive Augmented by ARM and Augmented by oxytocin Delivery Method Infant Delivery Method: positive Spontaneous vaginal delivery Cervical Ripening Method Cervical Ripening Method: positive Balloon device and Misoprostil (1 vaginal dose 25 mcg; 2 oral doses 50 mcg) Presentation Presentation: positive MECHE - right occiput anterior Nuchal Cord Nuchal Cord: positive Present (Single, tight nuchal cord - delivered through) Amniotic Fluid Description Amniotic Fluid Description: positive Clear Episiotomy Type Episiotomy Type: positive None Laceration Laceration: positive 2nd degree (Superficial 2nd degree repaired with 3-0 vicryl) Suture Suture Type: positive Vicryl Suture Size: positive 3-0 Delivery Outcome Delivery Date: 03/12/24 Delivery Time: 22:38 Delivery Outcome: positive Livebirth [place]: positive Placed in direct skin contact with mother, Stimulated and Warmed sex: positive Male Cord Cord: positive 3 vessels Placenta Placenta: positive Intact and Spontaneous Estimated Blood Loss Estimated Blood Loss (in cc): 465 Post Delivery Events Post Delivery Events: positive No post delivery events Delivery Comments (Free Text/Narrative) Delivery Comments (Free Text/Narrative): After cervical ripening, Pitocin, and amniotomy, patient progressed to 5.5/60/-2 and elected for epidural insertion for pain mgmt. Shortly after epidural insertion, early decels were noted. She was examined and found to be 9 cm/100 /+1. With the next contraction, she was dilated to c/c/+2. She pushed with excellent expulsive efforts. Head delivered MECHE. A tight nuchal x 1 was not easily reduced, so the baby was delivered through. Delayed cord clamping was performed x 1 min 48 sec. The male had excellent tone, color, and cry (Apgars 8/9; weight pending). He was placed [id number]. Placenta delivered intact with 3VC. Uterus felt enlarged and boggy. No retained tissue was palpated or removed with multiple sweeps. Pitocin had been started with placenta delivery. Hemabate was ordered. While preparing the med, patient was given buccal misoprostol 600 mcg. Tone was still not improving as Pitocin was bolused. TXA was ordered and started, and a angulo catheter was inserted, draining approx 150 ml of clear urine. Hemabate then arrived at the bedside. Tone remained poor, so the med was given. Shortly thereafter, tone improved. The midline superficial 2' laceration was repaired with 3-0 vicryl. The hymenal ring was reapproximated then the suture passed into the superficial perineal muscles and sub-Q. Perineal tissue was reapproximated, then the skin was closed with a running subcuticular suture. The suture was then buried above the hymenal ring. Hemostasis was achieved. Uterine tone was reassess and remained good. Mom and baby doing well. QBL 465 ml. For care, will add Lomotil prn for diarrhea and Ancef 2 gm x 1 for prophylaxis after multiple uterine sweeps.
[2024-03-12] MEDS: DIPHENOX/ATROPINE 2.5/0.025 MG TABLET PO PRN (23:47)
[2024-03-12] MEDS: ceFAZolin (2G) 2 GM in SODIUM CHLORIDE 0.9% MINIBAG 100 ML IV ONE (23:47)
[2024-03-13] MEDS: IBUPROFEN 600 MG TABLET PO PRN (00:37)
[2024-03-13] MEDS: LOPERAMIDE 2 MG CAPSULE PO PRN (00:39)
[2024-03-13] MEDS: ACETAMINOPHEN 500 MG TABLET PO PRN ×2 (02:06→18:49)
[2024-03-13 05:53] LABS: BASOPHILS % (AUTO) 0.3 %; EOSINOPHILS % (AUTO) 0.5 %; HGB - HEMOGLOBIN 8.5 g/dL (12.0-16.0); LYMPHOCYTES % (AUTO) 13.4 %; MEAN CORPUSCULAR HEMOGLOBIN 19.5 pg (27.0-31.0); MEAN CORPUSCULAR HGB CONC 30.4 g/dL (32.0-36.0); MEAN CORPUSCULAR VOLUME 64.4 fL (81.0-99.0); MEAN PLATELET VOLUME 10.7 fL (7.9-10.8); MONOCYTES % (AUTO) 9.7 %; NEUTROPHILS % (AUTO) 75.4 %; PLT - PLATELET COUNT 264 10^3/uL (130-450); RED BLOOD COUNT 4.35 10^6/uL (4.20-5.40); RED CELL DISTRIBUTION WIDTH 14.8 % (12.0-15.0); WHITE BLOOD COUNT 18.2 x10^3/uL (4.8-10.8)
[2024-03-13 05:56] LABS: SLIDE REVIEW? Indicated
[2024-03-13 05:57] LABS: ABNORMAL LYMPHS % (MANUAL) 0 %; BAND NEUTROPHILS % (MANUAL) 0 %
[2024-03-13 06:16] LABS: EOSINOPHILS # (MANUAL) 0.2 10^3/uL (0-0.7); LYMPHOCYTES # (MANUAL) 2.5 10^3/uL (1.5-3.5); LYMPHOCYTES % (MANUAL) 14 %; MONOCYTES # (MANUAL) 0.4 10^3/uL (0.0-1.0); NEUTROPHILS # (MANUAL) 15.1 10^3/uL (1.5-6.6)
[2024-03-13 06:19] LABS: ALBUMIN 2.9 g/dL (3.2-5.5); ALBUMIN/GLOBULIN RATIO 1.1 (1.0-2.2); BILIRUBIN,TOTAL 0.3 mg/dL (0.2-1.0); CALCIUM 8.2 mg/dL (8.5-10.3); CREATININE 0.6 mg/dL (0.6-1.3); POTASSIUM 3.8 mmol/L (3.5-4.5); TOTAL PROTEIN 5.6 g/dL (6.4-8.9)
[2024-03-13 06:20] LABS: PLATELET ESTIMATE, MANUAL NORMAL (130-450,000) (NORMAL); PLATELET MORPHOLOGY NORMAL APP (NORMAL); WBC MORPHOLOGY (MULTIPLE) NORMAL APPEARANCE (NORMAL)
[2024-03-13 06:21] LABS: DIFFERENTIAL COMMENT MANUAL DIFFERENTIAL
--- NOTE | 2024-03-13 12:55 | PROVIDER PROGRESS NOTE ---
Subjective Prog Note Date Prog Note Date: 03/13/24 Subjective Subjective: S: She reports that she is feeling well. Pain is well controlled with current medications. She is ambulating without difficulty. She is tolerating a normal diet. She is voiding without difficulty. Lochia reported as light. Current Medications Current Medications Current Medications: Current Medications Generic Name Dose Route Start Last Admin Trade Name Freq PRN Reason Stop Dose Admin Acetaminophen 1,000 mg 03/11/24 17:03 03/13/24 11:05 Acetaminophen 500 Mg Tablet PO 1,000 mg Q8H PRN Administration Mild Pain or Fever>38C(100.4F) Acetaminophen 1,000 mg 03/12/24 23:13 Acetaminophen 500 Mg Tablet PO Q8HR PRN Mild Pain or Fever>38C(100.4F) Calcium Carbonate/Glycine 1,000 mg 03/11/24 17:08 Calcium Carbonate Chew 500 Mg Tablet PO Q6HR PRN Heartburn Diphenoxylate HCl/Atropine 1 tab 03/12/24 23:15 03/12/24 23:47 Diphenox/Atropine 2.5/0.025 Mg Tablet PO 1 tab QID PRN Administration Diarrhea Docusate Sodium 100 mg 03/13/24 09:00 Docusate Sodium 100 Mg Capsule PO BID CANDACE Famotidine 20 mg 03/12/24 09:00 Famotidine 20 Mg/2 Ml Vial IVP DAILY CANDACE Hydralazine HCl 5 - 10 mg 03/11/24 17:03 Hydralazine Inj 20 Mg/Ml Vial IVP Q20M PRN SBP> or= 160 OR DBP> or= 110 Protocol Hydralazine HCl 10 mg 03/11/24 17:03 Hydralazine Inj 20 Mg/Ml Vial IVP .ONCE PRN SBP> or= 160 OR DBP> or= 110 Protocol Hydralazine HCl 10 mg 03/12/24 23:13 Hydralazine Inj 20 Mg/Ml Vial IVP .ONCE PRN SBP> or= 160 OR DBP> or= 110 Protocol Hydralazine HCl 5 - 10 mg 03/12/24 23:13 Hydralazine Inj 20 Mg/Ml Vial IVP Q20M PRN SBP >=160 and/or DBP >=110 Protocol Lactated Ringer's 500 mls @ 999 mls/hr 03/11/24 17:03 03/13/24 00:00 Lr IV Infused PRN PRN Infusion decels, mat hypotension Tranexamic Acid 1,000 mg in 100 mls @ 600 mls/hr 03/11/24 17:03 03/12/24 23:08 Tranexamic 1,000 Mg/100ml-Nacl IV Infused Q30M PRN Infusion EBL >1200mL and within 3hr Ibuprofen 600 mg 03/12/24 23:13 03/13/24 12:09 Ibuprofen 600 Mg Tablet PO 600 mg Q6HR PRN Administration Moderate Pain (Level 4-6) Labetalol HCl 20 - 80 mg 03/11/24 17:03 Labetalol 20 Mg/4 Ml Syringe IVP Q10M PRN SBP> or= 160 OR DBP> or= 110 Protocol Labetalol HCl 20 mg 03/11/24 17:03 Labetalol 20 Mg/4 Ml Syringe IVP .ONCE PRN SBP> or= 160 OR DBP> or= 110 Protocol Labetalol HCl 20 - 40 mg 03/11/24 17:03 Labetalol 20 Mg/4 Ml Syringe IVP Q10M PRN SBP> or= 160 OR DBP> or= 110 Protocol Labetalol HCl 20 - 80 mg 03/12/24 23:13 Labetalol 5 Mg/1 Ml 20 Ml Mdv IVP Q10M PRN SBP> or= 160 OR DBP> or= 110 Protocol Labetalol HCl 20 - 40 mg 03/12/24 23:13 Labetalol 20 Mg/4 Ml Syringe IVP Q10M PRN SBP> or= 160 OR DBP> or= 110 Protocol Labetalol HCl 20 mg 03/12/24 23:13 Labetalol 20 Mg/4 Ml Syringe IVP .ONCE PRN SBP >=160 and/or DBP >=110 Protocol Lidocaine HCl 20 ml 03/11/24 17:03 Lidocaine 1% 20 Ml Mdv ID 03/14/24 17:03 .ONCE PRN PERINEAL REPAIR Loperamide HCl 2 mg 03/13/24 00:31 03/13/24 00:39 Loperamide 2 Mg Capsule PO 2 mg QID PRN Administration Diarrhea Misoprostol 800 mcg 03/11/24 17:03 Misoprostol 200 Mcg Tablet FL .ONCE PRN Hemorrhage Nalbuphine HCl 2.5 mg 03/11/24 17:08 Nalbuphine 10 Mg/Ml Amp IVP Q2HR PRN ITCHING Naloxone HCl 0.1 mg 03/12/24 20:39 Naloxone 0.4 Mg/Ml Vial IVP Q2M PRN RR<8 Naloxone HCl 0.4 mg 03/12/24 23:13 Naloxone 0.4 Mg/Ml Vial IVP .ONCE PRN Opioid Overdose Nifedipine 10 - 20 mg 03/11/24 17:03 Nifedipine 10 Mg Capsule PO Q20M PRN SBP> or= 160 OR DBP> or= 110 Protocol Nifedipine 10 - 20 mg 03/12/24 23:13 Nifedipine 10 Mg Capsule PO Q20M PRN SBP >=160 and/or DBP >=110 Protocol Ondansetron HCl 4 mg 03/11/24 17:08 Ondansetron Odt 4 Mg Tablet PO Q4HR PRN Nausea / Vomiting Ondansetron HCl 4 mg 03/12/24 20:39 Ondansetron 4 Mg/2 Ml Vial IVP Q6HR PRN Nausea / Vomiting Prochlorperazine Edisylate 10 mg 03/11/24 17:12 Prochlorperazine 10 Mg/2 Ml Vial IM Q6HR PRN Nausea / Vomiting Sodium Chloride 10 ml 03/11/24 17:03 Sodium Chloride Flush 0.9% 10 Ml Syringe IVP PRN PRN NEEDED PER PROVIDER ORDERS Sodium Chloride 10 ml 03/11/24 18:00 03/12/24 05:40 Sodium Chloride Flush 0.9% 10 Ml Syringe IVP Not Given Q8H [facility] Ursodiol 250 mg 03/11/24 23:30 03/12/24 15:25 Ursodiol 250 Mg Tablet PO 250 mg TID [facility] Administration Ursodiol 250 mg 03/12/24 14:00 Ursodiol 250 Mg Tablet PO TID [facility] Objective Vital Signs/Intake & Output Reviewed Vital Signs: Yes Vital Signs: Vital Signs x48h Temp Pulse Resp BP 03/13/24 12:00 98.4 F 78 16 120/65 03/13/24 07:41 67 16 131/65 H Intake & Output: Intake & Output 03/10/24 03/11/24 03/12/24 03/13/24 23:59 23:59 23:59 23:59 Intake Total 1302 / 1302 1002 / 1002 Output Total 200 / 200 850 / 850 Balance 1102 / 1102 152 / 152 Weight (kg) 187 lb 187 lb 6.287 oz Objective Comments/Other: GEN: NAD Resp: non-labored respirations ABDOMEN: Soft, non tender, Fundus firm. EXT: no LE edema. No evidence of DVT. Lab Results 03/13/24 05:45 03/13/24 05:45 Other Labs: Lab Results x24hrs 03/13/24 03/13/24 03/13/24 Range/Units 05:45 05:45 05:45 WBC 18.2 H (4.8-10.8) x10^3/uL RBC 4.35 (4.20-5.40) 10^6/uL Hgb 8.5 L (12.0-16.0) g/dL Hct 28.0 L (37.0-47.0) % MCV 64.4 L (81.0-99.0) fL MCH 19.5 L (27.0-31.0) pg MCHC 30.4 L (32.0-36.0) g/dL RDW 14.8 (12.0-15.0) % Plt Count 264 (130-450) 10^3/uL MPV 10.7 (7.9-10.8) fL Neut # (Auto) Not Reportable Lymph # (Auto) Not Reportable [place] # (Auto) Not Reportable Eos # (Auto) Not Reportable Baso # (Auto) Not Reportable Absolute Nucleated RBC Not Reportable Total Counted 100 Band Neuts % (Manual) 0 (0 - 10) % Abnorm Lymph % (Manual) 0 % Nucleated RBC % Not Reportable Neutrophils # (Manual) 15.1 H (1.5-6.6) 10^3/uL Lymphocytes # (Manual) 2.5 (1.5-3.5) 10^3/uL Monocytes # (Manual) 0.4 (0.0-1.0) 10^3/uL Eosinophils # (Manual) 0.2 (0-0.7) 10^3/uL Basophils # (Manual) 0.0 (0-0.1) 10^3/uL Differential Comment MANUAL DIFFERENTIAL Manual Slide Review Indicated WBC Morphology NORMAL APPEARANCE (NORMAL) Platelet Estimate NORMAL (130-450,000) (NORMAL) Platelet Morphology NORMAL [place] (NORMAL) RBC Morph Micro Appear 1+ OVALOCYTES 1+ TEARDROP CELLS 2+ HYPOCHROMASIA (NORMAL) Sodium 133 L (135-145) mmol/L Potassium 3.8 (3.5-4.5) mmol/L Chloride 105 (101-111) mmol/L Carbon Dioxide 21 (21-32) mmol/L Anion Gap 7.0 (6-13) BUN 11 (6-20) mg/dL Creatinine 0.6 (0.6-1.3) mg/dL Estimated GFR (MDRD) 122 (>89) Glucose 93 (74-104) mg/dL Calcium 8.2 L (8.5-10.3) mg/dL Total Bilirubin 0.3 (0.2-1.0) mg/dL AST 14 (10-42) IU/L ALT 7 L (10-60) IU/L Alkaline Phosphatase 143 H (42-121) IU/L Total Protein 5.6 L (6.4-8.9) g/dL Albumin 2.9 L (3.2-5.5) g/dL Globulin 2.7 (2.1-4.2) g/dL Albumin/Globulin Ratio 1.1 (1.0-2.2) Assessment/Plan Problem List (1) care and examination of lactating mother: (2) (spontaneous vaginal delivery): (3) Cholestasis during : (4) Acute blood loss anemia: (5) Gestational hypertension: Impression: - Overall doing well. Asymptomatic for anemia with VS wnl. Continue routine care. Anticipate discharge tomorrow. Qualifiers: Trimester: third trimester Qualified Code(s): O13.3 - Gestational [-induced] hypertension without significant proteinuria, third trimester
--- NOTE | 2024-03-13 21:23 | MISCELLANEOUS PROVIDER NOTE ---
Miscellaneous Provider Note - Note: Cecelia was evaluated again this evening. She has had three episodes of emesis this afternoon. She initially declined rectal phenergan but since accepted. RN to also given a dose of IV zofran a little early. Discussed allergy to reglan, reports it makes her feel like her skin is crawling, would take it only if absolutely necessary. Reports that left flank pain persists, 7-10/08. I recommended that she stay overnight for pain control, management of N/V. IV fluids started since not tolerating PO. Reassess tomorrow. Discussed urology consult if severe pain persists. She is in agreement with plan. Foreign Hernandez MD
[2024-03-14 03:53] VITALS: O2SAT 97
[2024-03-14] MEDS: DOCUSATE SODIUM 100 MG CAPSULE PO SCH (08:30)
[2024-03-14] MEDS ORDERED: MEASLES,MUMPS & RUBELLA VACC 0.5 ML VIAL SUBQ ONE (09:00)
[2024-03-14 09:01] VITALS: BP 112/54; TEMP 98.1
--- NOTE | 2024-03-14 12:03 | Labor Flowsheet ---
Labor Flowsheet Datetime Report Generated by CPN: 03/14/2024 12:03 Datetime: 03/14/2024 08:47 VITAL SIGNS NBP Sys/Shelly/Mean (mmHg): 112 : 54 : 68 Pulse: 75 LaborFlag: Labor Datetime: 03/13/2024 03:15 Respirations: 14 SpO2 (%): 98 Temperature (C): 37.0 Temperature Route: Oral Datetime: 03/12/2024 22:38 UTERINE ACTIVITY Monitor Mode: External Frequency (min): 4 Quality: Strong Duration (sec): 60 Pattern: Normal: <= 5 Contractions in 10 Minutes Resting Tone (Palpate): Relaxed Pitocin Checklist: At Least 1 Acceleration of 15 bpm x 15 Seconds in 30 Minutes or Adequate Variabi lity; No More than 1 Late Deceleration Occurred in Past 30 Minutes; No More than 2 Variable Decelerat ions > 60 Seconds in Duration and decreasing >60 bpm in 30 minutes; No More than 5 Uterine Contractio ns in 10 Minutes for any 20 Minute Interval; Uterus Palpates Soft between Contractions ASSESSMENT A Monitor Mode: External US FHR Baseline Rate : 150 FHR Baseline Changes: No Baseline Change Variability: Moderate 6-25 bpm Decelerations: Variable Datetime: 03/12/2024 22:22 STAGE 2 Stage 2 Comments: pushing start Datetime: 03/12/2024 22:14 Effacement (%): 100 Station: 2 Datetime: 03/12/2024 22:12 VAGINAL EXAM Dilatation (cm): 9.0 Exam by: Lucero Obie, MD Datetime: 03/12/2024 22:06 COMMUNICATION Communication: Provider at Bedside Datetime: 03/12/2024 22:00 Monitor Interventions for UA: [place] Adjusted Datetime: 03/12/2024 21:47 Communication Comments: provider reviewed strip Datetime: 03/12/2024 21:32 Monitor Interventions for FHR: Ultrasound Adjusted Datetime: 03/12/2024 21:30 Patient Position/Activity: Right Extreme Patient Care Comments: with peanut ball Datetime: 03/12/2024 21:00 Accelerations: [id number] Datetime: 03/12/2024 20:22 ANESTHESIA Anesthesia Plans: Epidural Epidural Procedure: Loading Dose Datetime: 03/12/2024 20:19 Epidural Positioning: Sitting Datetime: 03/12/2024 20:16 PROCEDURE TIME OUT Procedure Verify: Correct Patient Identity; Correct Side and Site are Marked; Accurate Procedure Co nsent Form; Agreement on Procedure to be Done; Correct Patient Position; Relevant Images and Results are Properly Labeled and Displayed; Addressed Need to Administer Antibiotics or Fluids for Irrigation ; Safety Precautions Based on Patient History or Medication Use Anesthesia Comments: procedure started Datetime: 03/12/2024 19:00 Category: Category I Datetime: 03/12/2024 18:47 PAIN Pain Scale: 9 Pain Coping: Breathing Through Contractions Datetime: 03/12/2024 17:40 Pain Presence: Intermittent Pain Type: Contraction Pain Location: Abdomen; Back Pain Relief Measures: Comfort Measures Comfort Measures: Breathing/Relaxation Datetime: 03/12/2024 17:30 Stage of : Labor Datetime: 03/12/2024 16:50 MEDICATIONS Pitocin (milliunits): Increased to @ 10 Datetime: 03/12/2024 16:30 Comments: poor tracing d/t maternal position Datetime: 03/12/2024 16:00 Contraction Comments: irritability noted. Poor tracing d/t maternal position Datetime: 03/12/2024 15:58 Vital Sign Comments: BP taken during cxtn Datetime: 03/12/2024 15:48 Membrane Status: Ruptured Membranes Rupture Method: Artificial Amniotic Fluid Color: Clear Amniotic Fluid Amount: Moderate Amniotic Fluid Odor: Normal Membrane Comments: per Dr. Ragland Datetime: 03/12/2024 14:59 I/O Interventions: Up to BR Datetime: 03/12/2024 12:06 Medication Comments: LR @125 Datetime: 03/12/2024 11:53 PATIENT CARE IV/Blood Work: IV Started Datetime: 03/12/2024 11:32 Vaginal Bleeding: Moderate Vaginal Exam Comments: Cervical balloon removed spontaneously Datetime: 03/12/2024 07:34 Cervical Ripening Agents: Cytotec @ Datetime: 03/11/2024 23:30 Actions for Decelerations: Side to Side; IV Bolus; Sterile Vaginal Exam Datetime: 03/11/2024 16:58 Membranes Ruptured Date/Time: 03/12/2024 15:48 Cervical Ripening Agents Other: Cooks Balloon
--- NOTE | 2024-03-14 21:16 | Discharge Summary ---
"Discharge Summary Admit Date: 03/11/24 Discharge Date: 03/14/24 Discharging Provider: Shauna May MD Code Status: Attempt Resuscitation DIAGNOSES Admission Diagnoses: IUP at 37 weeks with gestational hypertension and cholestasis. Discharge Diagnoses with Status of Each Condition: same, delivered HPI History of Present Illness: patient with cholestasis and now gestational hypertension. Admitted for labor induction. miso, catheter, AROM, pitocin. ONce she got into labor progressed quickly. vaginal delivery with tight nuchal cord. uterine atony after placental delivery. treated with all the things. post op anemia more than normal. discharge home on ppd #2 doing well. baby was 7 lb 8 oz. CONSULTS | PROCEDURES Procedures: induction of labor, vaginal delivery HOSPITAL COURSE Hospital Course: above in HPI ALLERGIES Allergies Allergy/AdvReac Type Severity Reaction Status Date / Time No Known Drug Allergies Allergy Verified 03/12/24 14:52 MEDICATIONS Ambulatory Orders Medication Instructions Recorded Confirmed vits no.126-ferrous fum 1 tab PO DAILY 12/21/23 03/12/24 28 mg iron-folic acid 800 mcg tablet (Classic ) ursodiol 300 mg capsule 300 mg PO TID #180 caps 02/18/24 03/12/24 PHYSICAL EXAM AT DISCHARGE General Appearance: positive No acute distress Respiratory: positive No respiratory distress Cardiovascular: positive Regular rate & rhythm Abdomen: positive Non-tender and Other (uterine fundus firm) LABS 03/13/24 05:45 03/13/24 05:45 FOLLOW UP Follow Up: in clinic late this week to check bp TIME SPENT Time Spent in Discharge (Minutes): 15 Discharge Plan Discharge Patient Disposition: Home, Self Care Prescriptions: Continued Classic 28 mg iron- 800 mcg tablet 1 tab PO DAILY ursodiol 300 mg capsule 300 mg PO TID Qty: 180 2RF Activity Restrictions: pelvic rest for 6 weeks. Diet: Regular Print Language: Urdu Patient Instructions: Vaginal Follow-up Care: Shauna May MD [Provider Admit Priv/Credential] -"
== END 2024-03-14 11:45 | disposition home or self-care (01) | DRG 805 ==
LOC: WFO 15:58 → FBP 16:00
PROVIDERS: ADMIT Obstetrics & Gynecology; ATTEND Obstetrics & Gynecology